=== PATIENT | female | born 1960 | race Caucasian/White ===

== ENCOUNTER 2022-07-24 22:33 | Emergency (ER) | payer MEDICAID ==
[~2022-07-24] VITALS: Ht 157.5 cm; Wt 67.4 kg
[2022-07-24 22:52] VITALS: BP 151/91
[2022-07-25] MEDS ORDERED: HYDR-4798 PO (01:26)
[2022-07-25] MEDS ORDERED: HYDROcodone-ACET 10/325MG TAB PO ONE (01:30)
== END 2022-07-25 01:53 | disposition home or self-care (01) ==
LOC: ER 22:33
DX: S52.591A Other fractures of lower end of right radius, initial encounter for closed fracture (principal); S52.614A Nondisplaced fracture of right ulna styloid process, initial encounter for closed fracture; F17.210 Nicotine dependence, cigarettes, uncomplicated; W19.XXXA Unspecified fall, initial encounter; Y93.K1 Activity, walking an animal; Y92.89 Other specified places as the place of occurrence of the external cause; Y99.8 Other external cause status
CPT/HCPCS: 73130

== ENCOUNTER 2022-11-03 22:14 | Emergency (ER) | payer MEDICAID ==
[~2022-11-03] VITALS: Ht 157.5 cm; Wt 70.5 kg
[~2022-11-03 22:14] MED LIST: HYDR-4798 PO
[2022-11-03 23:35] VITALS: BP 151/103; PULSE 95; RESP 18; TEMP 98.6; O2SAT 99
[2022-11-04] MEDS ORDERED: HYDROcodone-ACET 5/325MG TAB PO ONE (00:15)
== END 2022-11-04 00:50 | disposition home or self-care (01) ==
LOC: ER 22:14
DX: M25.531 Pain in right wrist (principal); G89.29 Other chronic pain; F17.210 Nicotine dependence, cigarettes, uncomplicated; Z88.8 Allergy status to other drugs, medicaments and biological substances; Z79.1 Long term (current) use of non-steroidal anti-inflammatories (NSAID)
CPT/HCPCS: 73100